=== PATIENT | male | born 1960 | race Caucasian/White ===

== ENCOUNTER 2018-02-03 05:45 | Day surgery (SDC) | payer OTHER ==
[~2018-02-03 05:45] MED LIST: BACLOFEN10 MG; CAMBIA50 MG; COZAAR25 MG PO; FLUCONAZOLE200 MG PO; LEVAQUIN750 MG PO; LOSARTAN POTASS50 MG; MILK OF MA400 MG/5 M PO; NEURONTIN300 MG PO; PEPCID20 MG PO; SEPTRA DS TABLE1 TAB PO; TRAMADOL HCL E300 MG PO; ULTRACET; ZEGERID 20 MG C1 CAP PO; ZOLPIDEM TARTRA10 MG PO; [UNRECOGNIZED DRUG - OTHER] PO
== END 2018-02-03 09:35 | disposition home or self-care (01) ==
LOC: AMB-ENDOS 05:45
DX: D13.1 Benign neoplasm of stomach (principal); R10.13 Epigastric pain

== ENCOUNTER 2018-04-11 07:37 | Outpatient (CLI) | payer OTHER | END 2018-04-11 17:00 | disposition home or self-care (01) | LOC: SONOGRAMA 07:37 → MAMO-SONO 08:15 → SONOGRAMA 17:00 | DX: N31.0 Uninhibited neuropathic bladder, not elsewhere classified (principal); K59.01 Slow transit constipation ==

== ENCOUNTER 2018-04-16 10:35 | Outpatient (CLI) | payer OTHER | END 2018-04-16 11:00 | disposition home or self-care (01) | LOC: NUCLEAR 10:35 | DX: N31.0 Uninhibited neuropathic bladder, not elsewhere classified (principal) | CPT/HCPCS: 78708; A9539; J1940 ==

== ENCOUNTER 2018-05-26 06:15 | Day surgery (SDC) | payer OTHER | END 2018-05-26 10:40 | disposition home or self-care (01) | LOC: AMB-ENDOS 06:15 | DX: D12.2 Benign neoplasm of ascending colon (principal) ==

== ENCOUNTER 2018-09-25 10:31 | Outpatient (CLI) | payer OTHER | END 2018-09-25 10:38 | disposition home or self-care (01) | LOC: RAD 501 10:31 | DX: S82.232A Displaced oblique fracture of shaft of left tibia, initial encounter for closed fracture (principal) ==

== ENCOUNTER 2018-09-30 08:38 | Outpatient (CLI) | payer OTHER | END 2018-09-30 08:59 | disposition home or self-care (01) | LOC: LAB 08:38 | DX: E56.1 Deficiency of vitamin K (principal); E88.89 Other specified metabolic disorders; M81.8 Other osteoporosis without current pathological fracture; E83.42 Hypomagnesemia; M85.88 Other specified disorders of bone density and structure, other site ==

== ENCOUNTER 2018-10-16 09:54 | Outpatient (CLI) | payer OTHER | END 2018-10-16 12:03 | disposition home or self-care (01) | LOC: RAD 501 09:54 | DX: S82.232D Displaced oblique fracture of shaft of left tibia, subsequent encounter for closed fracture with routine healing (principal) ==

== ENCOUNTER 2018-10-27 08:59 | Outpatient (CLI) | payer OTHER | END 2018-10-27 09:14 | disposition home or self-care (01) | LOC: NUCLEAR 08:59 | DX: E21.3 Hyperparathyroidism, unspecified (principal); E83.42 Hypomagnesemia | CPT/HCPCS: 78070; A9500 ==

== ENCOUNTER 2018-11-12 08:29 | Outpatient (CLI) | payer OTHER | END 2018-11-12 08:56 | disposition home or self-care (01) | LOC: RAD 501 08:29 | DX: S82.232D Displaced oblique fracture of shaft of left tibia, subsequent encounter for closed fracture with routine healing (principal) ==

== ENCOUNTER 2018-12-11 08:12 | Outpatient (CLI) | payer OTHER | END 2018-12-11 08:35 | disposition home or self-care (01) | LOC: RAD 501 08:12 | DX: S82.232D Displaced oblique fracture of shaft of left tibia, subsequent encounter for closed fracture with routine healing (principal) ==

== ENCOUNTER 2018-12-26 09:56 | Outpatient (CLI) | payer OTHER | END 2018-12-26 10:12 | disposition home or self-care (01) | LOC: RAD 501 09:56 | DX: M79.604 Pain in right leg (principal) ==

== ENCOUNTER 2019-03-25 09:39 | Outpatient (CLI) | payer OTHER | END 2019-03-25 09:48 | disposition home or self-care (01) | LOC: RAD 501 09:39 | DX: M77.02 Medial epicondylitis, left elbow (principal) ==

== ENCOUNTER 2020-01-04 07:58 | Outpatient (CLI) | payer OTHER | END 2020-01-04 08:11 | disposition home or self-care (01) | LOC: SONOGRAMA 07:58 | DX: M77.11 Lateral epicondylitis, right elbow (principal) ==

== ENCOUNTER → 2020-07-06 | Outpatient (CLI) | payer OTHER | END | disposition home or self-care (01) | LOC: RAD 09:54 | PROVIDERS: ATTEND Physical Medicine & Rehabilitation | DX: M54.2 Cervicalgia (principal) ==

== ENCOUNTER → 2020-11-22 | Outpatient (CLI) | payer OTHER | END | disposition home or self-care (01) | LOC: RAD 08:25 | PROVIDERS: ATTEND Physical Medicine & Rehabilitation | DX: M25.422 Effusion, left elbow (principal); G56.22 Lesion of ulnar nerve, left upper limb ==

== ENCOUNTER → 2020-12-30 | Outpatient (CLI) | payer OTHER | END | disposition home or self-care (01) | LOC: RAD 11:18 | PROVIDERS: ATTEND Physical Medicine & Rehabilitation | DX: M40.47 Postural lordosis, lumbosacral region (principal); M54.6 Pain in thoracic spine; M54.5 Low back pain; R10.2 Pelvic and perineal pain ==

== ENCOUNTER 2021-01-19 07:12 | Outpatient (CLI) | payer OTHER | END 2021-01-19 07:39 | disposition home or self-care (01) | LOC: SONOGRAMA 07:12 → MAMO-SONO 07:45 | DX: N48.89 Other specified disorders of penis (principal); N39.0 Urinary tract infection, site not specified ==

== ENCOUNTER 2021-11-22 07:27 | Outpatient (CLI) | payer OTHER | END 2021-11-22 07:33 | disposition home or self-care (01) | LOC: RAD 07:27 | PROVIDERS: ATTEND Physical Medicine & Rehabilitation | DX: M25.521 Pain in right elbow (principal); W19.XXXA Unspecified fall, initial encounter ==